=== PATIENT | male | born 1945 | race Caucasian/White ===

== ENCOUNTER 2020-10-21 17:25 | Emergency (ER) | payer OTHER, SELFPAY ==
[2020-10-21 17:26] VITALS: BP 151/81; PULSE 60; RESP 15; TEMP 36.4; O2SAT 97; BMI 30.4
--- NOTE | 2020-10-21 17:27 | CT_ITS ---
STUDY: CTA HEAD AND NECK WITH CONTRAST REASON FOR EXAM: Male, 75 years old. Off balance and falling to the right RADIATION DOSAGE (If Supplied By Facility): CTDIvol = ( 29.83 ) mGy, DLP = ( 1649.27 ) mGycm TECHNIQUE: CT angiography was performed with a multi-detector CT scanner. Data acquisition was obtained from the skull base through the vertex following intravenous administration of IV 75mL Isovue-370. MIP images were reconstructed from the axial data set. Post-processing of the angiographic images was performed, with multiplanar reformation and 3D reconstruction. Individualized dose optimization techniques were used for this CT. COMPARISON: CT of the head, 10/21/2020. FINDINGS: Normal bilateral petrous carotid arteries. There is calcified plaque formation of the right cavernous carotid artery, without a cross-sectional luminal stenosis. Normal left cavernous carotid artery with a normal supraclinoid bifurcation. Normal right A1 segments of the anterior cerebral artery. Normal left A1 segments of the anterior cerebral artery. Normal intact anterior communicating artery (ACOM). Normal bilateral A2 segments of the anterior cerebral arteries. Normal left M1 and M2 segments of the middle cerebral arteries, with a normal M1 bifurcation. Normal right M1 and M2 segments of the middle cerebral arteries. There appears to be a 0.3 x 0.2 x 0.2 cm saccular aneurysm at the bifurcation. This is best seen on image 94 of series 604. Normal right posterior communicating artery (PCOM). There is non-visualization of the left posterior communicating artery (PCOM). Distal right vertebral artery is markedly atrophic. Normal basilar artery with a normal basilar bifurcation. The visualized bilateral superior cerebellar (SCA) arteries are normal. Normal P1, P2 and visualized P3 segments of the left posterior cerebral artery. There is a hypoplastic P1 segment of the right posterior cerebral artery. The P2 and visualized P3 segments are supplied via the patent posterior communicating artery. There is no demonstrated abnormality of the visualized brain. AORTIC ARCH: Normal visualized aortic arch. Normal origins of the brachiocephalic, left common carotid, and left subclavian arteries. RIGHT CAROTID ARTERIES: Normal right common carotid artery (CCA). There is atherosclerotic changes at the carotid bifurcation and base of the carotid bulb without significant stenosis. Normal origin of the right internal carotid (ICA) artery without a hemodynamically significant stenosis. Normal visualized cervical portion of the right internal carotid artery. Normal origin of the right external carotid artery (ECA). LEFT CAROTID ARTERIES: Normal left common carotid artery (CCA). Atherosclerotic changes at the carotid bifurcation and base of the carotid bulb without significant stenosis. Normal origin of the left internal carotid (ICA) artery without a hemodynamically significant stenosis. Normal visualized cervical portion of the left internal carotid artery. Normal origin of the left external carotid artery (ECA). VERTEBRAL ARTERIES: Normal bilateral vertebral arteries. IMPRESSION: 1. Atherosclerotic changes of bilateral carotid bifurcations without significant stenosis by a mass effect criteria. 2. 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 There is no evidence of rupture or leakage. 3. 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 The distal segments are supplied via the patent posterior communicating artery. Electronically Signed: Zhen Joshua DO at 19:31 EDT Tel [phone], Service support , STUDY: CT BRAIN WITHOUT CONTRAST REASON FOR EXAM: Male, 75 years old. Off balance and falling to the right. TECHNIQUE: Transaxial CT imaging of the brain was performed without administration of intravenous contrast material. Individualized dose optimization techniques were used for this CT. COMPARISON: No relevant priors. FINDINGS: Normal soft tissue structures. Normal calvarium. Normal size ventricles and extra-axial spaces for the patient''s age. Normal white matter tracts of the cerebral hemispheres. Normal basal ganglia and thalami. Normal brainstem. Normal cerebellum. There is no intracranial hemorrhage. There are no findings of an acute ischemic infarction. Normal visualized paranasal sinuses. CT/CTA Head AND Neck W/ Contrast IMPRESSION: Normal unenhanced CT scan of the brain. Electronically Signed: Zhen Joshua DO at 19:24 EDT Tel [phone], Service support ,
--- NOTE | 2020-10-21 17:27 | EKG12_ITS ---
Test Reason : WEAKNESS Blood Pressure : / mmHG Vent. Rate : 060 BPM Atrial Rate : 060 BPM P-R Int : 272 ms QRS Dur : 096 ms QT Int : 476 ms P-R-T Axes : 048 -18 026 degrees QTc Int : 476 ms Sinus rhythm with 1st degree A-V block Otherwise normal ECG Confirmed by MARGARITO LEVY, TATI ([id number]), international editorial producer SANIA MONTENEGRO ([id number]) on 10/22/2020 1:05:04 PM Referred By: MALLORIE Confirmed By:TATI PIMENTEL MD
--- NOTE | 2020-10-21 17:32 | ED.VISSUMM ---
- ER Visit Summary Date of Service: 10/21/20 Chief Complaint: Off balance and falling to the right History of Present Illness: The patient is a 75 M history of prior renal failure renal transplant, hypertension resolved off medications, skin cancer and prior melanoma surgery about 30 years ago. Patient is never had any cardiac history or stroke. He has had no recent admissions. Tuesday morning after midnight he had cold sweats. Tuesday evening started having nausea and vomiting. [place] weak and dizzy. Was taken to a local emergency department and evaluation at that time that was negative. Tuesday had recurrent nausea vomiting. And issues with dizziness and falling to the left. Some trouble with walking. No significant headache. He was treated with Zofran which improved his nausea. No diarrhea. No fever. No head injury. No anticoagulation. No trouble with his vision, speech or using his arms. Physical Examination: 75-year-old male no acute distress. Vital signs stable afebrile. Accompanied by family. HEENT exam unremarkable. Pupils round react light extra motions are intact. No facial droop. Normal speech. Neck nontender. Lungs clear to auscultation bilaterally. Heart regular rhythm no murmur. Rate about 60. Abdomen soft nontender normal bowel sounds no peritoneal signs. Patient moving all 4 extremities. Neurovascularly intact. Lying in bed he has a normal neurologic exam. He is awake and alert. No facial droop. Normal speech. Extraocular motions are intact. 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 Fingertip to nose bilaterally within normal limits. Dorsi plantarflexion intact. No drift of either his upper or lower extremities. Test Results: EKG normal sinus rhythm rate of 60 no acute signs of SC or ischemia. First-degree AV block with a SC interval of 272. No dysrhythmia. CBC normal white count of 9. Hemoglobin 16. Chemistries potassium slightly low at 3.3. Normal gap normal creatinine of 1. Liver enzymes normal. CTA of the head and neck as read by the radiologist and reviewed by me shows chronic atherosclerotic changes of the bilateral carotid bifurcations without significant stenosis. 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 Hypoplastic P1 segment of the right posterior cerebral artery with distal flow. Multiple repeat exams the patient is doing well. He has a completely normal neurologic exam lying in bed. Emergency Department Course and Treatment: 75-year-old male history of prior renal failure status post transplant with viral-like syndrome this past weekend but now off balance and having trouble falling to the right for the last several days. Patient will undergo screening labs, EKG and CTA of his head neck to rule out CVA versus intracranial bleed versus mass versus other etiologies. Will be pretreated with IV fluids due to his history of prior renal failure. Treatment Plan: Patient was offered admission for MRI in the morning. He does not want to be admitted without any obvious signs of stroke. He will follow up as an outpatient for the aneurysm and if the ataxia continues. Disposition: Discharge Impression: Acute generalized weakness with dizziness and ataxia Recent viral syndrome History of prior end-stage renal disease status post renal transplant with normal renal function now History of prior melanoma with resection This note was generated with iNeed dictation software. It may contain incorrect words, spelling, and punctuation that were not noted in review of the chart prior to signing ED Disposition - Plan for ED Patient: Referrals: [facility] Doctor,Out of [NON-STAFF] -
[2020-10-21] MEDS: 0.9% Normal Saline 1,000 ML 999 ML IV (17:37)
[2020-10-21 17:56] LABS: Absolute Lymphocyte Count 1.37 X10^3/uL (0.83-4.51); Absolute Neutrophil Count 7.3 X10^3/uL (2.0-7.7); Basophil# 0.03 X10^3/uL; Basophil% 0.3 % (0-1); Eosinophil# 0.11 X10^3/uL; Eosinophils% 1.2 % (0-5); Hematocrit 48.6 % (40-54); Hemoglobin 16.5 g/dL (13.0-16.5); Lymphocyte # 1.37 X10^3/ul (4.0); Lymphocyte % 14.3 % (19-41); Mean Corpuscular Hgb 29.6 pg (27.0-32.0); Mean Corpuscular Volume 87.3 fL (80-94); Mean Platelet Vol. 11.3 fl (6.2-12.0); Monocyte# 0.73 X10^3/uL; Monocyte% 7.6 % (0-10); NRBC Flagged by Analyzer 0 % (0-5); Neutrophil # 7.25 X10^3/uL (2.7-7.7); Platelet Count 149 K/mm3 (150-450); RBC Distribution Width CV 13.9 % (11.6-14.6); RBC Distribution Width SD 44.4 fl (35.1-43.9); Red Blood Count 5.57 M/mm3 (4.6-6.2); White Blood Count 9.6 K/mm3 (4.4-11.0)
[2020-10-21 18:14] LABS: AST(SGOT) 14 U/L (15-37); Alanine Aminotransfer ALT/SGPT 28 U/L (16-61); Albumin, Serum 3.6 g/dL (3.2-5.0); Alkaline Phosphatase 83 U/L (45-117); Anion Gap 3 (5-15); BUN 17 mg/dL (7-18); BUN/Creat Ratio 16.5 RATIO (10-20); Chloride 101 mmol/L (98-107); Creatinine, Serum 1.03 mg/dL (0.70-1.30); EST Glomerular Filtration Rate 75 mL/min (>60); Est Glom Filt Rate - Afr Amer 91 mL/min (>60); Estimated Creatinine Clearance 62.92 ml/min; Globulin 3.6 g/dL (2.2-4.2); Glucose 117 mg/dL (74-106); Potassium 3.3 mmol/L (3.5-5.1); Protein, Total 7.2 g/dL (6.4-8.2); Sodium Level 136 mmol/L (136-145)
[2020-10-21 19:15] VITALS: PULSE 62; RESP 16; O2SAT 95
--- NOTE | 2020-10-21 19:52 | ED.DEP ---
ED Disposition - Plan for ED Patient: Disposition: Home or Assisted Living Prescriptions: predniSONE tablet 40 mg PO DAILY 5 Days #10 tab Prescription Printed Referrals: [facility],Out of [NON-STAFF] - 3-5 Days if not improving
== END 2020-10-21 19:58 | disposition home or self-care (01) ==
PROVIDERS: Emergency Provider Emergency Medicine
DX: R27.0 Ataxia, unspecified (principal); R53.1 Weakness; B34.9 Viral infection, unspecified; Z94.0 Kidney transplant status; Z85.820 Personal history of malignant melanoma of skin; I44.0 Atrioventricular block, first degree; I67.1 Cerebral aneurysm, nonruptured
CPT/HCPCS: 70496; 70498; 80053; 85025; 93005; 96360; 96361; 99284; J7030; Q9967; A4216

== ENCOUNTER → 2025-01-18 | Outpatient (CLI) | payer MEDICARE, SELFPAY ==
--- NOTE | 2025-01-18 15:43 | ECHOD_ITS ---
Reason For Study Reason For Study: MURMUR Procedure This was a 2D Doppler, Color Flow transthoracic echocardiogram. Exam performed in department. Left Ventricle Normal LV size. Mild concentric left ventricular hypertrophy. The left ventricular ejection fraction is 60 %. Stage 1 diastolic dysfunction. No regional wall motion abnormalities noted. Right Ventricle Normal RV size. The right ventricle is normal in size, function, and thickness. Atria The left atrium is mildly enlarged. Normal right atrium. Mitral Valve Normal mitral valve. Tricuspid Valve Normal tricuspid valve. Aortic Valve Trisinus/trileaflet aortic valve. Mild focal aortic valve calcification. Peak aortic valve gradient 11 mmHg. Mean aortic valve gradient 6 mmHg. Pulmonic Valve Normal pulmonic valve. Great Vessels Normal aortic root. The pulmonary artery is normal size. Inferior vena cava collapse with respiration. Pericardium/Pleural No pericardial effusion. MMode/2D Measurements & Calculations LVIDd: 4.5 cm IVSd: 1.2 cm LVOT diam: 2.2 cm LVIDs: 3.2 cm LVPWd: 1.2 cm LVOT area: 3.8 cm2 RVDd: 3.7 cm FS: 27.8 % Ao root diam: 3.5 cm LAV(MOD-bp): 67.5 ml LVAd ap4: 32.8 cm2 LAV(MOD-bp) Indexed: 32.0 ml/m2 LVLd ap4: 9.4 cm LAV(MOD-sp2): 67.0 ml EDV(MOD-sp4): 96.9 ml LAV(MOD-sp4): 67.2 ml EDV(sp4-el): 96.9 ml LVAs ap4: 19.6 cm2 LVLs ap4: 8.3 cm ESV(MOD-sp4): 39.3 ml ESV(sp4-el): 39.3 ml EF(MOD-sp4): 59.4 % EF(sp4-el): 59.4 % LVAd ap2: 30.7 cm2 SV(MOD-sp4): 57.6 ml SV(MOD-sp2): 52.8 ml LVLd ap2: 9.0 cm SI(MOD-sp4): 27.3 ml/m2 SI(MOD-sp2): 25.0 ml/m2 EDV(MOD-sp2): 86.8 ml EDV(sp2-el): 89.2 ml LVAs ap2: 17.2 cm2 LVLs ap2: 7.6 cm ESV(MOD-sp2): 34.0 ml ESV(sp2-el): 33.2 ml EF(MOD-sp2): 60.9 % SV(sp4-el): 57.6 ml Aortic Valve Planimetry: 2.1 cm2 LA A4 area: 21.2 cm2 LA dimension(2D): 4.4 cm RA A4 area: 12.7 cm2 TAPSE: 2.9 cm Time Measurements MV dec time: 0.13 sec Doppler Measurements & Calculations MV E max jose: 54.5 cm/sec Lat Peak E' Jose: 8.4 cm/sec Med Peak E' Jose: 10.2 cm/sec MV A max jose: 104.4 cm/sec E/E' lat: 6.5 E/E' med: 5.3 MV E/A: 0.52 Ao V2 max: 162.8 cm/sec LV V1 max: 86.8 cm/sec SV(LVOT): 66.6 ml Ao max P.6 mmHg LV V1 max P.0 mmHg Ao V2 mean: 117.6 cm/sec LV V1 mean P.6 mmHg Ao mean P.1 mmHg LV V1 mean: 60.9 cm/sec Ao V2 VTI: 35.2 cm LV V1 VTI: 17.7 cm AV (velocity ratio): 0.50 MIKO(I,D): 1.9 cm2 MIKO(V,D): 2.0 cm2 PA V2 max: 90.0 cm/sec ECHO/Echo Complete Interpretation Summary Normal LV size. Mild concentric left ventricular hypertrophy. The left ventricular ejection fraction is 60 %. Stage 1 diastolic dysfunction. Mild focal aortic valve calcification. Mean aortic valve gradient 6 mmHg. Ordering Physician: Flip Buck Referring Physician: OTD Performed By: Silvia Singh RDCS, RVT
== END | disposition home or self-care (01) ==
PROVIDERS: Referring Provider Internal Medicine Cardiovascular Disease; Visit Provider Internal Medicine Cardiovascular Disease
DX: R01.1 Cardiac murmur, unspecified (principal)
CPT/HCPCS: 93306

== ENCOUNTER 2025-04-18 13:33 | Emergency (ER) | payer MEDICARE, SELFPAY ==
[2025-04-18] VITALS (9 sets, daily range): BP systolic 167–206; BP diastolic 95–115; PULSE 60–67; RESP 15–17; TEMP 36.6–36.8; O2SAT 94–98; BMI 29.5
--- NOTE | 2025-04-18 13:50 | CT_ITS ---
PROCEDURE: CTA HEAD AND NECK W/ CONTRAST 04/18/2025 REASON FOR EXAM: DIZZINESS ?? POSTERIOR CIRCULATION TIA TECHNIQUE: Procedure Code: CTCTA.HDNCK Modality: CT Procedure: CTA HEAD AND NECK W/ CONTRAST Multiplanar Sagittal and Coronal images were obtained. One or more dose reduction techniques were used (e.g., Automated exposure control, adjustment of the mA and/or kV according to patient size, use of iterative reconstruction technique). FINDINGS: Moderate global parenchymal atrophy and chronic microvascular ischemic changes are present. No evidence of acute hemorrhage or infarction. No extra-axial blood or fluid collections. Paranasal sinuses and mastoid air cells are clear. Aortic arch demonstrates atherosclerosis. Common carotid arteries are patent. Atherosclerosis of the bilateral carotid bulbs and proximal internal carotid arteries with less than 50% stenosis. Dominant left cervical vertebral artery. Right vertebral artery is somewhat hypoplastic throughout its cervical course and demonstrates an abrupt cutoff at the level of the foramen magnum. Findings could represent either an anatomic variant termination of a hypoplastic right vertebral artery or less likely, an acquired occlusion. No evidence of dissection or adjacent soft tissue abnormality. Anterior communicating artery is patent. Right anterior cerebral artery demonstrates a hypoplastic or aplastic A1 segment. Remaining anterior cerebral circulation is patent. Bilateral middle cerebral arteries are patent. Atherosclerosis of the carotid siphons without hemodynamically significant stenosis. Posterior cerebral arteries are patent. CT/CTA Head AND Neck W/ Contrast IMPRESSION: Right vertebral artery is hypoplastic and demonstrates abrupt cutoff at the lev el of the foramen magnum, which may represent either congenital termination or less likely, acquired occlusion. Further nabeel acterization with MRI is recommended. Atherosclerosis of the aortic arch, carotid bulbs, and carotid siphons without hemodynamically significant stenosis. Dominant left vertebral artery supplies the basilar circulation. Chronic microvascular ischemic changes and global parenchymal volume loss. Reading Location: [id number]
[2025-04-18 14:20] LABS: Hematocrit 43.7 % (40-54); Hemoglobin 15.0 g/dL (13.0-16.5); Immature Granulocytes Count 0.020 X10^3/uL (0.0-0.0); Mean Corp Hgb Conc 34.3 g/dL (32-36); Mean Corpuscular Volume 85.5 fL (80-94); Mean Platelet Vol. 10.7 fl (6.2-12.0); NRBC Flagged by Analyzer 0 % (0-5); Platelet Count 176 K/mm3 (150-450); RBC Distribution Width CV 13.4 % (11.6-14.6); RBC Distribution Width SD 41.8 fl (35.1-43.9); Red Blood Count 5.11 M/mm3 (4.6-6.2); White Blood Count 7.1 K/mm3 (4.4-11.0)
--- NOTE | 2025-04-18 16:02 | EDS_ITS ---
HPI History of Present Illness Chief Complaint: Dizziness Informant: patient Onset/Context/Timing Onset: Month(s) Context: Sudden Onset Timing: Intermittent Current Severity: Gone Maximum Severity: Moderate Narrative Narrative: 80-year-old male history of renal transplant. No prior stroke or cardiac history. Prior GI bleed. States for months he has had intermittent episodes of dizziness. They come on suddenly. He feels lightheaded or like he might fall. Is not room spinning. Only occasional mild headaches. No cardiac history. No palpitations. No chest pain or shortness of breath. No recent illness. No history of stroke or mini stroke. Recently has episodes where he has had blurry vision in the left eye which is resolved. Also mild confusion with the episodes. Prior similar symptoms: Yes Recent Illness/Hospitalization: No PFSH PFSH Home Medications ?Medication ?Instructions ?Recorded ?Last Taken ?Type tacrolimus 1 mg capsule, 2 mg PO DAILY 10/21/20 Unkno wn History immediate-release tacrolimus 1 mg capsule, 2.5 mg PO QHS 10/21/20 Unkno wn History immediate-release Allergy/AdvReac Type Severity Reaction Status Date / Time Penicillins Allergy Rash Verified 10/21/20 17:32 Surgical History Kidney transplant recipient Social History Smoking Status: Never smoker ROS ROS ED ROS Narrative Denies recent illness. Constitutional Constitutional ED: Denies chills or fever(s) Eyes Eyes: Reports blurry vision ENT ENT ED: Denies ear pain Cardiovascular Cardiovascular: Denies chest pain Respiratory/Chest Respiratory/Chest: Denies cough or dyspnea Gastrointestinal Gastrointestinal: Denies abdominal pain, diarrhea, nausea or vomiting Genitourinary Genitourinary ED: Denies dysuria or hematuria Musculoskeletal Musculoskeletal: Denies arthralgias or back pain Integumentary Denies abscess Neurologic Neurologic: Reports headache(s); Denies paresthesias or weakness Psychiatric Psychiatric: Denies anxiety or depression Endocrine Endocrinology: Denies cold intolerance Hematologic/Lymphatic Hematologic/Lymphatic: Reports none Allergic/Immunologic Allergic/Immunologic ED: Denies mouth swelling, tongue swelling or urticaria EXAM Physical Exam Narrative Exam Narrative: 80-year-old male sitting upright in bed. Currently symptom-free. Initial blood pressures elevated 197 and 10 6 repeat 160/100. Pulse ox 97% on room air no signs hypoxia. No distress. H EENT exam pupils round react light. Extra motions are intact. Normal speech. No facial droop. No trauma. Neck nontender lymphadenopathy. Lungs clear to auscultation bilaterally. Heart regular rhythm rate about 65 3/6 systolic ejection murmur. Chest wall ribs nontender. Abdomen soft nontender. Renal transplant. Nontender. Moving all 4 extremities. 5 out of 5 spring clipper strength. Normal dorsi plantarflexion nontender no edema. Normal range of motion. Fingertip to nose and [id number] within normal limits. Neurologic exam normal. NIH 0. Const Vital Signs: 04/18/25 13:34 04/18/25 13:51 04/18/25 16:23 Temperature 97.9 F Temperature Source Oral Pulse Rate 66 66 Respiratory Rate 17 17 Blood Pressure 197/106 H 167/100 H 206/95 H Blood Pressure Mean 136 122 132 Pulse Ox 96 97 Oxygen Delivery Method Room Air Room Air 04/18/25 16:26 04/18/25 16:37 Temperature Temperature Source Pulse Rate 60 Respiratory Rate 17 Blood Pressure 203/102 H 182/100 H Blood Pressure Mean 135 127 Pulse Ox 96 Oxygen Delivery Method Room Air Positive well developed; Negative for cachectic, contractures or unkempt General Appearance ED: well developed and NAD; Negative for unkempt, cachectic, contractures, cyanotic, diaphoretic or pallor Nutritional Appearance: Negative for cachectic HEENT Reports moist mucous membranes Eyes PERRL and EOMs intact bilaterally Neck no lymphadenopathy, supple and no JVD Chest Wall inspection of chest normal and palpation of chest normal Resp normal respiratory effort and clear to auscultation bilaterally Cardio regular rate, regular rhythm, S1 normal heart sound and S2 normal heart sound; Negative for no murmurs GI normal to inspection, nondistended, normoactive bowel sounds, non-tender, non- distended and no masses Palpation: soft; Negative for tender, guarding or rebound tenderness present Back/Spine no CVA tenderness Extremity normal to inspection General Extremety ED: Negative for edema, tenderness or other findings General Extremity: Negative for edema or other findings Neuro oriented x3, CN's II-XII intact bilaterally and no sensory deficits noted Sensorium / Orientation: alert Motor Exam: strength 5/5 throughout Psych mental status grossly normal Appearance: Negative for unkempt Skin no rashes or lesions noted, no wounds and skin turgor normal General Skin Exam: Negative for jaundice or pallor Lesions: No lesion noted Rashes: No rashes noted Trauma: Negative for abrasion Wounds: Negative for wounds noted MDM MDM MDM Narrative Medical decision making narrative: 80 yo male with Dizziness. Exam benign. Concern for possible posterior circulation insufficiency. CTA will be obtained screening labs. Repeat exam patient is doing well. His blood pressure intermittently has been elevated. I have not reassess his outpatient by primary care physician. CTA showed chronic changes. CBC and chemistry were unremarkable. He was treated with a liter normal saline after the CTA. Will be discharged home. Repeat exam his exam is normal. Unchanged. NIH 0. Normal neurologic exam. History & Record Review Discussion w/independent historian: Patient Additional record(s) reviewed:: Prior inpatient record, Prior outpatient record, Prior ED visit and Prior labs Lab Data Attestation: I reviewed the patient's lab results. Lab results narrative: CBC is unremarkable. H and H 15 and 43. BMP unremarkable. Gap 10. BUN and creatinine of 13 and 0.9. Glucose 91. Chronic changes on the CTA of the head and neck up to be congenital. Labs: Laboratory Results - last 24 hr 04/18/25 04/18/25 13:47 13:58 WBC 7.1 RBC 5.11 Hgb 15.0 Hct 43.7 MCV 85.5 MCH 29.4 MCHC 34.3 RDW Std Deviation 41.8 RDW Coeff of Ximena 13.4 Plt Count 176 MPV 10.7 Immature Gran % (Auto) 0.300 Neut % (Auto) 61.9 Lymph % (Auto) 22.7 [place] % (Auto) 8.8 Eos % (Auto) 5.5 H Baso % (Auto) 0.8 Absolute Neuts (auto) 4.4 Absolute Lymphs (auto) 1.60 Nucleated RBC % 0 Sodium 139 Potassium 3.7 Chloride 101 Carbon Dioxide 28.4 Anion Gap 10 BUN 13 Creatinine 0.98 Estim Creat Clear Calc 70.18 Est GFR (MDRD) Non-Af 78 BUN/Creatinine Ratio 13.2 Glucose 91 Calcium 8.7 POC Glucose 94 Radiography Diagnostic Testing: Clinical Impression(s) from Imaging Studies Head/Neck CTA 04/18/25 13:50 IMPRESSION: Right vertebral artery is hypoplastic and demonstrates abrupt cutoff at the level of the foramen magnum, which may represent either congenital termination or less likely, acquired occlusion. Further characterization with MRI is recommended. Atherosclerosis of the aortic arch, carotid bulbs, and carotid siphons without hemodynamically significant stenosis. Dominant left vertebral artery supplies the basilar circulation. Chronic microvascular ischemic changes and global parenchymal volume loss. Reading Location: [address] Rhythm Strip Rhythm Strip: Sinus Rhythm Rate: 63 Ectopy: None EKG Initial EKG: Attestation: I personally reviewed and interpreted this EKG as follows: Interpretation: Sinus Rhythm and No Acute Injury Pattern Comments: NSR rate of 63. NAD. Discharge Plan Triage Chief Complaint: Dizziness ED Provider: Yonathan Wade Dx/Rx/DC Orders Clinical Impression: Dizziness of unknown cause, History of renal transplant Instructions: ED Dizziness, Uncertain Cause Prescriptions: No Action tacrolimus 1 MG capsule 2 mg PO DAILY tacrolimus 1 MG capsule 2.5 mg PO QHS Primary Care Provider: BAIRON CLARK DO Referrals: BAIRON CLARK DO [Other] Activity Restrictions/Additional Instructions: Plenty of fluids and rest. Watch your blood pressure over the next week. Print Language: Sammarinese Disposition Disposition: Home, Self Care
[2025-04-18] MEDS: 0.9% Normal Saline (1000mL) 1,000 ML 999 ML IV (16:20)
--- NOTE | 2025-04-18 16:42 | ED.RN ---
lab called for outstanding blood work. response it is running now
[2025-04-18 16:54] LABS: Anion Gap 10 (5-15); BUN 13 mg/dL (4-19); BUN/Creat Ratio 13.2 RATIO (10-20); Calcium,Total 8.7 mg/dL (7.6-11.0); Carbon Dioxide 28.4 mmol/L (21.0-32.0); Chloride 101 mmol/L (98-108); Estimated Creatinine Clearance 70.18 ml/min (50-250); Glucose 91 mg/dL (70-99); Potassium 3.7 mmol/L (3.3-5.1)
== END 2025-04-18 17:36 | disposition home or self-care (01) ==
PROVIDERS: Emergency Provider Emergency Medicine; Visit Provider Emergency Medicine
DX: R42 Dizziness and giddiness (principal); Z94.0 Kidney transplant status
CPT/HCPCS: 70496; 70498; 80048; 82962; 85025; 93005; 96360; 99284; Q9967; A4216